=== PATIENT | male | born 1985 | race Caucasian/White ===

== ENCOUNTER 2021-08-19 17:52 | Emergency (ER) | payer OTHER ==
[~2021-08-19] VITALS: Ht 175.3 cm; Wt 56.7 kg
[2021-08-19 17:54] VITALS: BP 131/80
--- NOTE | 2021-08-19 17:55 | NUR ---
BIBA to bed 05.
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
--- NOTE | 2021-08-19 18:35 | NUR ---
MARII Gayle is evaluating pt at bedside
[2021-08-19] MEDS ORDERED: BACITRACIN OINT 500 UNITS/GM PKT TP ONE ×2 (18:45→18:55)
--- NOTE | 2021-08-19 18:53 | NUR ---
EMT at bedside for wound irrigation and wound dressing.
--- NOTE | 2021-08-19 19:19 | NUR ---
Report and transfer of care endorsed to JAZMINE Mcclure.
[2021-08-19 20:10] VITALS: BP 131/80
--- NOTE | 2021-08-19 22:00 | NUR ---
Patient discharged with v/s stable. Written and verbal after care instructions given and explained. Patient verbalized understanding. Ambulatory with steady gait. All questions addressed prior to discharge. Advised to follow up with PMD.
== END 2021-08-19 20:00 | disposition home or self-care (01) ==
LOC: MED 17:52
DX: S31.000A Unspecified open wound of lower back and pelvis without penetration into retroperitoneum, initial encounter (principal); F20.9 Schizophrenia, unspecified; R03.0 Elevated blood-pressure reading, without diagnosis of hypertension; X58.XXXA Exposure to other specified factors, initial encounter; Y93.89 Activity, other specified; Y92.89 Other specified places as the place of occurrence of the external cause; Y99.8 Other external cause status
CPT/HCPCS: 99282